=== PATIENT | male | born 1975 | race Caucasian/White ===

== ENCOUNTER 2017-11-19 14:08 | Emergency (ER) | payer SELFPAY ==
[~2017-11-19] VITALS: Ht 172.7 cm; Wt 61.0 kg
[2017-11-19 14:15] VITALS: BP 133/68; PULSE 63; RESP 16; TEMP 98.3; O2SAT 97
--- NOTE | 2017-11-19 14:48 | PD ---
HPI Chief Complaint: ENT Complaint Time Seen by Provider: 14:38 Travel History International Travel<30 days: No Contact w/Intl Traveler<30days: No Traveled to known affect area: No History of Present Illness HPI 42-year-old male here with bilateral ear discomfort and hearing loss over the last week. Patient was offered translation services and declined. He is conversing appropriately in [place]an during exam. No fever chills. No drainage from the ears. Symptom severity is mild. No aggravating or alleviating factors. PFSH Past Medical History Medical History: Denies Significant Hx Social History Alcohol Use: Yes Tobacco Use: No Substance Use: No Allergies-Medications (Allergen,Severity, Reaction): Coded Allergies: No Known Allergies (Unverified , 11/19/17) Reported Meds & Prescriptions Reported Meds & Active Scripts Active No Active Prescriptions or Reported Medications Review of Systems Except as stated in HPI: all other systems reviewed are Neg HENT: Positive: Earache Physical Exam Narrative GENERAL: Alert and well-appearing 42-year-old male SKIN: Warm and dry. HEAD: Normocephalic. EYES: No injection or drainage. ENT: Bilateral cerumen impaction. No canal swelling or drainage. No mastoid tenderness. NECK: Supple, trachea midline. No JVD or lymphadenopathy. CARDIOVASCULAR: Regular rate and rhythm RESPIRATORY: Breath sounds equal bilaterally. No accessory muscle use. GASTROINTESTINAL: Abdomen soft, non-tender, nondistended. Data Data Last Documented VS Vital Signs Date Time Temp Pulse Resp B/P (MAP) Pulse Ox O2 Delivery O2 Flow Rate FiO2 11/19/17 14:15 98.3 63 16 133/68 (89) 97 Orders Orders Ear Irrigation (11/19/17 14:44) [facility] Medical Decision Making Medical Screen Exam Complete: Yes Emergency Medical Condition: Yes Differential Diagnosis Cerumen impaction, otitis media, otitis externa Narrative Course 42-year-old male here with cerumen impaction. Ear irrigation performed by information technology security analyst. Patient tolerated procedure well. Diagnosis Primary Impression: Cerumen impaction Qualified Codes: H61.23 - Impacted cerumen, bilateral Referrals: [facility] No Active Prescriptions or Reported Meds Disposition: DISCHARGE HOME Condition: Stable Leigh Mnaning [employer] November 19, 2017 14:48
== END 2017-11-19 16:43 | disposition home or self-care (01) ==
LOC: PHEFT 14:08
DX: H61.23 Impacted cerumen, bilateral (principal)
CPT/HCPCS: 99283